=== PATIENT | female | born 2000 | race American Indian/Alaskan Native ===

== ENCOUNTER 2021-06-19 04:54 | Emergency (ER) | payer MEDICAID ==
--- NOTE | 2021-06-19 05:25 | Emergency Department Report ---
<DELIA WINKLER - Last Filed: 06/19/21 05:23> ED Psych HPI - General Stated Complaint: SUICIDAL Time Seen by Provider: 06/19/21 05:18 - History of Present Illness Initial Comments: Patient is a 20-year-old F Omani female who has a remote history of suicide attempt who is states she is feeling suicidal. Patient states is just a lot going on she is very stressed about she has been having thoughts of killing herself. No set plan. Patient is not attempted to do anything as of yet. States she does want help. Denies homicidal ideations auditory visual hallucinations. Patient would not elaborate on what type of stress is going on in her life this making her want to kill herself. - Related Data Previous Rx's Medication Instructions Recorded Last Taken Type FLUoxetine [PROzac] 20 mg PO QDAY 30 Days #30 capsule 06/19/21 Unknown Rx Allergies Allergy/AdvReac Type Severity Reaction Status Date / Time apple Allergy Unknown Verified 06/19/21 05:43 carrot Allergy Unknown Verified 06/19/21 05:45 lactose Allergy Unknown Verified 06/19/21 05:45 ED Review of Systems Comment: All other systems reviewed and negative ED Past Medical Hx - Medications Home Medications: Home Medications Medication Instructions Recorded Confirmed Last Taken Type FLUoxetine [PROzac] 20 mg PO QDAY 30 Days #30 capsule 06/19/21 Unknown Rx ED Physical Exam - General General appearance: alert, in no apparent distress, other (tearful) - Head Head exam: Present: atraumatic, normocephalic - Eye Eye exam: Present: normal appearance, PERRL, EOMI - ENT ENT exam: Present: mucous membranes moist - Neck Neck exam: Present: normal inspection - Respiratory Respiratory exam: Present: normal lung sounds bilaterally. Absent: respiratory distress, wheezes, rales, rhonchi, stridor - Cardiovascular Cardiovascular Exam: Present: regular rate, normal rhythm, normal heart sounds. Absent: systolic murmur, diastolic murmur, rubs, gallop - GI/Abdominal GI/Abdominal exam: Present: soft, normal bowel sounds. Absent: distended, tenderness, guarding, rebound - Extremities Exam Extremities exam: Present: normal inspection - Back Exam Back exam: Present: normal inspection - Neurological Exam Neurological exam: Present: alert, oriented X3 - Psychiatric Psychiatric exam: Present: normal affect, depressed - Skin Skin exam: Present: warm, dry, intact, normal color. Absent: rash ED Disposition Clinical Impression: Acute depression Disposition: DC-01 TO HOME OR SELFCARE Condition: Stable Instructions: Major Depressive Disorder, Adult Prescriptions: FLUoxetine [PROzac] 20 mg PO QDAY 30 Days #30 capsule Referrals: PRIMARY CARE, [Primary Care Provider] - 3-5 Days <CATHIJOHN - Last Filed: 06/19/21 12:47> ED Review of Systems ROS: Stated complaint: SUICIDAL Other details as noted in HPI ED Course Vital Signs 06/19/21 06/19/21 06/19/21 05:56 06:22 09:10 Temperature 98.5 F 98.3 F Pulse Rate 73 73 Respiratory 16 16 18 Rate Blood Pressure 132/87 141/94 [Right] O2 Sat by Pulse 98 98 99 Oximetry 06/19/21 10:30 Temperature Pulse Rate Respiratory Rate Blood Pressure [Right] O2 Sat by Pulse 99 Oximetry ED Medical Decision Making - Lab Data Result diagrams: 06/19/21 05:51 06/19/21 05:51 - Medical Decision Making This is a 20-year-old female with history of depression with suicidal ideation no plan. She is medically clear for psychiatric care. She has a history of previous suicide attempt. She is medically clear for psychiatric care. I rev iewed the labs obtained. Labs all unremarkable. Awaiting treatment recommendations by psychiatric team. Patient was cleared for discharge by mental health team. I agree that patient does not require inpatient psychiatric treatment. Prozac prescription provided by mental health team. Patient also given outpatient mental health resources. Critical care attestation.: If time is entered above; I have spent that time in minutes in the direct care of this critically ill patient, excluding procedure time. ED Disposition Is pt being admited?: No Does the pt Need Aspirin: No
[2021-06-19 06:21] LABS: Basophils % (Auto) 0.3 % (0.0-1.8); Eosinophils # (Auto) 0.1 K/mm3 (0.0-0.4); Hematocrit 38.1 % (30.3-42.9); Hemoglobin 13.3 gm/dl (10.1-14.3); Lymphocytes # (Auto) 2.3 K/mm3 (1.2-5.4); Lymphocytes % (Auto) 36.2 % (13.4-35.0); Mean Corpuscular HGB Conc 35 % (30-34); Mean Corpuscular Volume 88 fl (79-97); Monocytes # (Auto) 0.5 K/mm3 (0.0-0.8); Monocytes % (Auto) 7.8 % (0.0-7.3); Platelet Count 238 K/mm3 (140-440); Red Blood Count 4.32 M/mm3 (3.65-5.03); Red Cell Distribution Width 13.7 % (13.2-15.2)
[2021-06-19 06:43] LABS: Blood Urea Nitrogen 9 mg/dL (7-17); Calcium 9.3 mg/dL (8.4-10.2); Hemolysis Index 8
[2021-06-19 06:46] LABS: BUN/Creatinine Ratio 13
--- NOTE | 2021-06-19 10:06 | Consultation ---
History of Present Illness - Reason for Consult Consult date: 06/19/21 Reason for consult: mental health evaluation/ SI - History of Present Psychiatric Illness Per ED Note: Patient is a 20-year-old F Guamanian female who has a remote history of suicide attempt who is states she is feeling suicidal. Patient states is just a lot going on she is very stressed about she has been having thoughts of killing herself. No set plan. Patient is not attempted to do anything as of yet. States she does want help. Denies homicidal ideations auditory visual hallucinations. Patient would not elaborate on what type of stress is going on in her life this making her want to kill herself. Sammie Pérez is a 20 year old female with a history of Bipolar, Depression, Anxiety Disorder who presents to ED with suicidal ideation. In my interview with the patient, she reports that she had a mental breakdown, stating " I'm going through a lot, I have so much on my plate." The patient reports recent stressors such as [employer] case, relationship issues and her two children. The patient reports having mood swings; she reports that she stopped taking psychotropic medications when she was younger. The patient denies any current suicidal/homicidal ideation and denies hallucinations. Diagnoses: Bipolar, Depression, Anxiety Disorder Suicide attempts or Self-harm behavior:Yes Substance Abuse history: Denies Previous psychiatric medications tried:Seroquel, Trileptal Outpatient treatment: Yes PAST MEDICAL HISTORY: None reported Family Psychiatric History: None reported or documented SOCIAL HISTORY Marital Status: single Living Arrangements: Lives with friends family Employment Status: unemployed Access to guns/weapons: Denies Education: 11th grade History of Abuse: none reported Legal History: none reported REVIEW OF SYSTEMS Constitutional: Negative for weight loss ENT: Negative for stridor Respiratory: Negative for cough or hemoptysis All other systems reviewed and are negative MENTAL STATUS EXAMINATION General Appearance and Behavior: Age appropriate, good hygiene, wearing appropriate clothes, cooperative, cooperative Cooperation: Participating/engaged Psychomotor Behavior: normal Mood: Depressed Affect and affective range: congruent with stated mood Thought Process: Not suicidal Thought Content:obsessions Speech: Normal volume, Regular rate and rhythm Suicidal Ideation: Denies Homicidal Ideation: Denies Hallucinations: Denies Delusions: None elicited Impulse Control: impaired Insight and Judgment: Limited insight and judgment, Memory: normal Attention: Normal Orientation: Alert, oriented Assessment and Plan (1) Major depressive Disorder, recurrent, moderate- F33.1 Current Visit: Yes Status: Acute Start Prozac 20mg po daily Treatment Plan Sitter: Per primary Medical: Per primary Disposition:Do not recommend acute psychiatric inpatient treatment. The patient understands that is suicidal/homicidal ideation or any endangering thoughts/ behaviors arise, they should immediately seek for emergent assistance including but not limited to crisis hotline and emergency room. The patient will follow up with psychiatric outpatient referral provided by [facility]. Will sign off. Thanks Case staffed with Dr. Javier Medications and Allergies Medications and Allergies Allergies Allergy/AdvReac Type Severity Reaction Status Date / Time apple Allergy Unknown Verified 06/19/21 05:43 carrot Allergy Unknown Verified 06/19/21 05:45 lactose Allergy Unknown Verified 06/19/21 05:45 Home Medications Medication Instructions Recorded Confirmed Last Taken Type FLUoxetine [PROzac] 20 mg PO QDAY 30 Days #30 capsule 06/19/21 Unknown Rx Mental Status Exam - Vital signs Last Vital Signs Temp 98.5 F 06/19/21 05:56 Pulse 73 06/19/21 05:56 Resp 16 06/19/21 06:22 BP 132/87 06/19/21 05:56 Pulse Ox 98 06/19/21 06:22 Results Result Diagrams: 06/19/21 05:51 06/19/21 05:51 Abnormal lab results 06/19/21 06/19/21 06/19/21 Range/Units 05:51 05:51 05:51 MCHC 35 H (30-34) % Lymph % (Auto) 36.2 H (13.4-35.0) % Dewey % (Auto) 7.8 H (0.0-7.3) % Salicylates < 0.3 L (2.8-20.0) mg/dL Acetaminophen 5.0 L (10.0-30.0) ug/mL All other labs normal.
[2021-06-19 10:09] VITALS: BP 141/94
[2021-06-19] MEDS ORDERED: ACETAMINOPHEN 325 MG TAB PO ONE (12:26)
== END 2021-06-19 12:53 | disposition home or self-care (01) ==
LOC: ED 04:54
DX: F32.9 Major depressive disorder, single episode, unspecified (principal); Z20.822 Contact with and (suspected) exposure to COVID-19; Z91.018 Allergy to other foods; Z79.899 Other long term (current) drug therapy
CPT/HCPCS: 36415; 80048; 84703; 85025; 99284; U0003; 80320; G0480